=== PATIENT | male | born 1965 | race Caucasian/White ===

== ENCOUNTER → 2020-05-16 15:45 | Outpatient (BNVA) | payer OTHER, SELFPAY | PROVIDERS: Family Provider Nurse Practitioner; PCP Nurse Practitioner; Visit Provider Nurse Practitioner Family | DX: M54.9 Dorsalgia, unspecified (principal); M62.830 Muscle spasm of back; M54.5 Low back pain | CPT/HCPCS: 81000; 87086 ==

== ENCOUNTER 2020-09-18 16:56 | Emergency (ER) | payer OTHER, SELFPAY ==
[2020-09-18 17:08] VITALS: BP 147/92; PULSE 70; RESP 18; TEMP 36.8; O2SAT 96; BMI 27.1
--- NOTE | 2020-09-18 17:37 | XR_ITS ---
WS: [id number] Portable AP upright chest, 09/18/2020 Clinical Data: headache Comparison: PA and lateral chest, 11/14/2019. Findings: No nodules, masses or effusions are seen. The heart is normal. The pulmonary vascularity is not increased. No pneumonia or pneumothorax is seen. There is a bleb or bulla overlying the lateral aspect of the left diaphragm unchanged. XR/XR chest 1V portable [id number] Impression: Negative chest.
--- NOTE | 2020-09-18 17:37 | CTR_ITS ---
PROCEDURE INFORMATION: Exam: CT Head Without Contrast Exam date and time: 09/18/2020 5:39 PM Age: 55 years old Clinical indication: Pain; Dizziness and visual disturbance; Headache; Additional info: Persistent headache TECHNIQUE: Imaging protocol: Computed tomography of the head without contrast. Radiation optimization: All CT scans at this facility use at least one of these dose optimization techniques: automated exposure control; mA and/or kV adjustment per patient size (includes targeted exams where dose is matched to clinical indication); or iterative reconstruction. COMPARISON: No relevant prior studies available. RADIATION DOSE METRICS: Total DLP (mGy-cm): 842.58 FINDINGS: Brain: Normal. No hemorrhage. Unremarkable white matter. No mass effect. Cerebral ventricles: No ventriculomegaly. Bones/joints: Unremarkable. No acute fracture. Paranasal sinuses: Visualized sinuses are unremarkable. No fluid levels. Mastoid air cells: Visualized mastoid air cells are well aerated. Soft tissues: Unremarkable. CT/CT head wo con* [id number] IMPRESSION: No acute intracranial abnormality. Radiation Dose CTDIVOL = (mGy): DLP = 842.58 (mGy-cm)
--- NOTE | 2020-09-18 17:38 | PC.PHAR ---
PT STATES HE HAS BEEN OUT OF HIS LISINOPRIL FOR A WEEK-PT STATES HE HAS NO REFILLS LEFT
[2020-09-18 17:44] VITALS: BP 176/110; PULSE 76; RESP 16; O2SAT 96
--- NOTE | 2020-09-18 18:18 | ED_ITS ---
HPI - Headache General: Chief Complaint: Headache Stated Complaint: Headache,Dizziness, Blurred Vision Time Seen by Provider: 09/18/20 17:14 Source: patient Mode of arrival: ambulatory Limitations: no limitations History of Present Illness: HPI Narrative: 55-year-old male with no prior history of headaches presented to emergency department with headaches of 4 days duration. Headaches are frontal and he says it is behind his eyes. There is associated photophobia, nausea, blurred vision and dizziness. No fever, no neck stiffness, no neck pain. MD elicited complaint: headache Onset (ago): day(s) (4) Onset description: gradually Location: frontal Severity: moderate Quality & Timing: throbbing Exacerbating factors: none Relieving factors: nothing Context: occurred at rest Associated symptoms: Reports nausea and photophobia; Deny chest pain, confusion, cough, diaphoresis, eye pain, eye redness, fever(s), lightheadedness, loss of vision, malaise, neck stiffness, numbness, paresthesias, pre-syncope, rash, seizures, short of breath, sound sensitivity, syncope, vomiting or weakness Treatments prior to arrival: ibuprofen Review of Systems General: Reports: 10 or more systems reviewed and unremarkable except in HPI and below Const: Denies: fever(s), malaise or diaphoresis Eyes: Denies: change in vision or blurry vision ENMT: Denies: throat pain, enlarged tonsils, odynophagia, hoarseness, mouth pain or swelling of lips/tongue Card: Denies: chest pain, lightheadedness, syncope or pre-syncope Resp: Denies: dyspnea, productive cough or non-productive cough GI: Reports: nausea; Denies: vomiting : Denies: flank pain, dysuria, urinary frequency, urinary urgency or urinary hesitancy Musc: Denies: neck pain, back pain or extremity swelling Skin/Breast: Denies: rash Neuro: Denies: confusion Endo: Denies: polyuria, polydipsia or tired all the time [facility] ED PFSH: Social History Smoking and tobacco status: current every day smoker Alcohol intake: never Physical Exam Const: COMMON NORMALS: no acute distress, average body habitus, patient oriented x3, no limitations, healthy appearing, alert and well nourished HENMT: COMMON NORMALS: normocephalic, atraumatic and moist oral mucous membranes HEAD & SCALP: normocephalic and atraumatic Eye: COMMON NORMALS: Equal, round and reactive pupils present, EOMs intact bilaterally, conjunctivae normal and no scleral icterus CONJUNCTIVA: Yes conjunctivae normal PUPIL: Yes Equal, round and reactive pupils present DIRECT OPHTHALMOSCOPY: Yes photophobia Neck/C-Spine: COMMON NORMALS: full ROM, supple, no meningeal signs, no JVD and No carotid bruits Resp: COMMON NORMALS: normal respiratory effort, No retractions, No use of accessory muscles, clear to auscultation bilaterally and percussion normal AUSCULTATION: clear to auscultation bilaterally PERCUSSION: percussion normal Cardio: COMMON NORMALS: no JVD, regular rate, regular rhythm, S1 normal heart sound present, S2 normal heart sound present, No gallops present (Cardio), No clicks present (Cardio), No murmurs present (Cardio), No rub (Cardio) and Peripheral pulses 2+ throughout RATE: regular rate RHYTHM: regular rhythm HEART SOUNDS: S1 normal heart sound present and S2 normal heart sound present PERIPHERAL PULSES: Peripheral pulses 2+ throughout GI: COMMON NORMALS: Normal to inspection, nondistended, normoactive bowel sounds present, Soft to palpation, non-tender, No hepatosplenomegaly present, no masses and no bruits PALPATION: Yes Soft to palpation and Yes No hepatosplenomegaly present Neuro: COMMON NORMALS: patient oriented x3 SENSORIUM/ORIENTATION: Yes alert MENINGEAL SIGNS: Yes no meningeal signs Course Reevaluation(s): Reevaluation #1: Headache has resolved and he is ready to discharge home. Explained his lab and imaging findings with him. Unremarkable. Most likely had a migraine headache. Also refilled his antihypertensives. Blood pressure was much improved by the time his headache resolved. Time: 21:02 Vital Signs: Vital signs: Vital Signs Temperature 98.2 F 09/18/20 17:08 Pulse Rate 61 09/18/20 21:14 Respiratory Rate 16 09/18/20 21:14 Blood Pressure 139/91 09/18/20 21:14 Pulse Oximetry 95 09/18/20 21:14 MDM - Headache MDM Narrative: Medical decision making narrative: 55-year-old male with clinical features of a migraine headache. Head CT was negative, examination and lab findings were unremarkable. He is discharged home with no new orders. Headache resolved with migraine medications. Blood pressure also normalized. I refilled his antihypertensive as he says his primary care did not today and only sent him here for evaluation. Medical Records: Attestation: I reviewed the patient's medical records. Lab Data: Attestation: I reviewed the patient's lab results. Labs: Lab Results 09/18/20 09/18/20 09/18/20 Range/Units 18:17 18:17 18:17 WBC 7.8 (4.0-10.0) 10^3/ uL RBC 4.62 (4.1-5.3) 10^6/u L Hgb 14.5 (11.7-16.6) g/dL Hct 42.8 (42.0-52.0) % MCV 92.6 (80-94) fL MCH 31.4 (28.0-34.0) pg MCHC 33.9 (30.0-36.0) g/dL RDW 13.6 (12.1-15.1) % Plt Count 334 (130-400) 10^3/c mm MPV 10.1 (7.4-10.4) fL Neut % (Auto) 61.2 % Lymph % (Auto) 26.0 % [place] % (Auto) 8.7 % Eos % (Auto) 2.9 % Baso % (Auto) 0.8 % Neut # (Auto) 4.78 (1.8-7.7) 10^3/u L Lymph # (Auto) 2.0 (0.8-4.8) 10^3/u L [place] # (Auto) 0.7 (0.2-0.9) 10^3/u L Eos # (Auto) 0.2 (0.0-0.8) 10^3/u L Baso # (Auto) 0.1 (0.0-0.1) 10^3/u L Nucleated RBC % (a uto) 0 % Nucleated RBCs # 0.0 /100WBC PT 12.30 (12.1-14.9) SECO NDS INR 0.89 (0.8-1.2) Sodium 136 (136-145) mmol/L Potassium 4.0 (3.5-5.1) mmol/L Chloride 101 (98-107) mmol/L Carbon Dioxide 24 (22-29) mmol/L Anion Gap 15.0 (5-19) BUN 16 (6-20) mg/dL Creatinine 0.8 (0.7-1.2) mg/dL GFR Calculation 101.1 (90-130) mL/min Glucose 98 (65-115) mg/dL Calculated Osmolal ity 283 L (285-295) mOsm/k g Calcium 9.3 (8.5-10.5) mg/dL Total Bilirubin 0.2 (0.15-1.2) mg/dL AST 15 (0-40) U/L ALT 20 (0-41) U/L Alkaline Phosphata se 63 (40-130) IU/L Total Protein 6.9 (6.6-8.7) g/dL Albumin 4.3 (3.5-5.2) g/dL Globulin 2.6 (1.3-4.6) g/dL Imaging Data^: CT Head: Attestation: I personally reviewed and interpreted this imaging study as follows: Radiologist's impression: [address] [address] [address] Scan Report Signed Patient: Varun Roman #: [id number] : 1965Acct#:[id number] Age/Sex: 55 / MADM Date: 09/18/20 Loc: [facility]/Bed: Attending Dr: Ordering Provider/Ordering MD: Bunny Li MD, [facility] [place] Date of Service: 09/18/20 Procedure(s): CT head wo con* [id number] Accession Number(s): [id number] Report Number: [id number] PROCEDURE INFORMATION: Exam: CT Head Without Contrast Exam date and time: 09/18/2020 5:39 PM Age: 55 years old Clinical indication: Pain; Dizziness and visual disturbance; Headache; Additional info: Persistent headache TECHNIQUE: Imaging protocol: Computed tomography of the head without contrast. Radiation optimization: All CT scans at this facility use at least one of these dose optimization techniques: automated exposure control; mA and/or kV adjustment per patient size (includes targeted exams where dose is matched to clinical indication); or iterative reconstruction. COMPARISON: No relevant prior studies available. RADIATION DOSE METRICS: Total DLP (mGy-cm): 842.58 FINDINGS: Brain: Normal. No hemorrhage. Unremarkable white matter. No mass effect. Cerebral ventricles: No ventriculomegaly. Bones/joints: Unremarkable. No acute fracture. Paranasal sinuses: Visualized sinuses are unremarkable. No fluid levels. Mastoid air cells: Visualized mastoid air cells are well aerated. Soft tissues: Unremarkable. CT/CT head wo con* [id number] IMPRESSION: No acute intracranial abnormality. Radiation Dose CTDIVOL = (mGy): DLP = 842.58 (mGy-cm) Dictated By:Rosalio Suarez Signed By:Ciaran Suarezigned Date/Time:09/18/201814 DD/ 12 CXR: Attestation: I personally reviewed and interpreted this imaging study as follows: My impression: No acute findings Discharge Plan Discharge Patient Disposition: Home Clinical Impression: Migraine Qualifiers: Migraine type: without aura Status migrainosus presence: without status migrainosus Intractability: not intractable Qualified Code(s): G43.009 - Migraine without aura, not intractable, without status migrainosus Hypertension Qualifiers: Hypertension type: essential hypertension Qualified Code(s): I10 - Essential (primary) hypertension Condition: Stable Prescriptions: New lisinopril 10 mg tablet 10 mg PO DAILY Qty: 30 RF: 0 Continued meclizine 25 mg tablet 25 mg PO TID PRN (Reason: Dizziness) RF: 0 Aleve PM 220-25 mg Tablet 2 tab PO BEDTIME RF: 0 Discontinued lisinopril 10 mg tablet 10 mg PO DAILY RF: 0 Discharge Orders: Discharge ED (Routine); Ordered 09/18/20 Ordered By: Bunny Li Discharge Diet: Usual diet Discharge Activity: Increase activity as tolerated Patient Instructions: Migraine Headache (ED), Hypertension (ED) Activity Restrictions/Additional Instructions: Return for any new or worsening symptoms. Follow-up with your primary care provider within 3 days. Take your antihypertensives as prescribed. Coding Level of Care Code ED Test Man for Chg Fwd Exam Detailed
[2020-09-18 18:45] LABS: Basophils # 0.1 10^3/uL (0.0-0.1); Basophils % 0.8 %; Eosinophils # 0.2 10^3/uL (0.0-0.8); Eosinophils % 2.9 %; Hematocrit 42.8 % (42.0-52.0); Hemoglobin 14.5 g/dL (11.7-16.6); Mean Corpuscular HGB Conc 33.9 g/dL (30.0-36.0); Mean Corpuscular Hemoglobin 31.4 pg (28.0-34.0); Mean Corpuscular Volume 92.6 fL (80-94); Mean Platelet Volume 10.1 fL (7.4-10.4); Monocytes # 0.7 10^3/uL (0.2-0.9); Monocytes % 8.7 %; Neutrophils # 4.78 10^3/uL (1.8-7.7); Neutrophils % 61.2 %; Nucleated Red Blood Cells % 0 %; Platelet Count 334 10^3/cmm (130-400); Red Blood Count 4.62 10^6/uL (4.1-5.3); Red Cell Distribution Width 13.6 % (12.1-15.1); White Blood Count 7.8 10^3/uL (4.0-10.0)
[2020-09-18] MEDS: ketorolac 30 mg/mL INJ IVP (18:56)
[2020-09-18] MEDS: diphenhydrAMINE 50 mg/mL SDV 1mL IVP (18:56)
[2020-09-18 19:07] LABS: INR 0.89 (0.8-1.2)
[2020-09-18 19:14] LABS: Alanine Aminotransferase 20 U/L (0-41); Albumin Level 4.3 g/dL (3.5-5.2); Alkaline Phosphatase 63 IU/L (40-130); Aspartate Amino Transferase 15 U/L (0-40); Blood Urea Nitrogen 16 mg/dL (6-20); Calcium 9.3 mg/dL (8.5-10.5); Carbon Dioxide 24 mmol/L (22-29); Chloride 101 mmol/L (98-107); Creatinine Clr Calc Pharmacy 125.1338; Globulin 2.6 g/dL (1.3-4.6); Glomerular Filtration Rate 101.1 mL/min (90-130); Glucose 98 mg/dL (65-115); Osmolality Calculated 283 mOsm/kg (285-295); Sodium 136 mmol/L (136-145); Total Bilirubin 0.2 mg/dL (0.15-1.2); Total Protein 6.9 g/dL (6.6-8.7)
[2020-09-18] MEDS: valproic acid inj 1,000 MG in sodium chloride 0.9% 50 ML 55 MG IV (20:24)
[2020-09-18] MEDS: dexamethasone 10 mg/mL INJ IVP (20:24)
[2020-09-18 21:14] VITALS: BP 139/91; PULSE 61; RESP 16; O2SAT 95
== END 2020-09-18 21:21 | disposition home or self-care (01) ==
PROVIDERS: Emergency Provider Family Medicine
DX: G43.009 Migraine without aura, not intractable, without status migrainosus (principal); I10 Essential (primary) hypertension; F17.210 Nicotine dependence, cigarettes, uncomplicated
CPT/HCPCS: 12345; 70450; 71045; 80053; 85025; 85610; 96365; 96375; 99283; J1100; J1200; J1885

== ENCOUNTER 2020-12-02 14:23 | Emergency (ER) | payer OTHER, SELFPAY ==
[2020-12-02 14:45] VITALS: BP 153/87; PULSE 74; RESP 18; TEMP 36.6; O2SAT 96; BMI 27.2
--- NOTE | 2020-12-02 15:22 | XRR_ITS ---
PROCEDURE INFORMATION: Exam: XR Chest Exam date and time: 12/02/2020 3:31 PM Age: 55 years old Clinical indication: Shortness of breath; Additional info: SOB TECHNIQUE: Imaging protocol: XR of the chest. Views: 1 view. COMPARISON: CR XR chest 1V portable [id number] 09/18/2020 5:41 PM FINDINGS: Lungs: Unremarkable. No consolidation. Pleural spaces: Unremarkable. No pleural effusion. No pneumothorax. Heart/Mediastinum: Unremarkable. No cardiomegaly. Bones/joints: Unremarkable. XR/XR chest 1V portable [id number] IMPRESSION: No acute findings.
--- NOTE | 2020-12-02 15:24 | ECG_ITS ---
[facility] Test Date: 2020-12-02 Pat Name: Varun Roman Department: Room: Gender: Male Sourcing Manager: : 1965 Requested By: Clive Hummel Order Number: [id number] Mehran MD: Loida Phelan M.D. Measurements Intervals [place] Rate: 64 P: 56 WA: 160 QRS: 12 QRSD: 100 T: 57 QT: 388 QTc: 401 Interpretive Statements SINUS RHYTHM No previous ECG available for comparison Electronically Signed On 12-03-2020 12:11:47 CDT by Loida Phelan M.D. [email or web address]
[2020-12-02 15:48] LABS: ABG PCO2 41.2 mmHg (35-45); ABG PH Result 7.41 (7.35-7.45); Arterial Blood Gas Hematocrit 45.9 % (42-52); Base Excess ABG 1.4 mmol/L (-2.0-2.0); Blood Gas Allen Test Pos; Blood Gas Sample Site Radial, right; Blood Gas Sample Type Arterial; Carboxyhemoglobin 5.9 %THgb (0.4-20.1); HCO3 ABG 26.2 mmol/L (22-26); HGB O2 Sat 91.4 % (95-100); Methemoglobin 0.5 % (0.4-1.5); Oxygen Device ROOM AIR; PO2 ABG 85.7 mmHg (80.0-100.0)
--- NOTE | 2020-12-02 15:51 | W.ED.GENADLT ---
HPI - General Adult General: Chief complaint: Shortness of Breath/Dyspnea Stated complaint: dizzy Time Seen by Provider: 12/02/20 15:16 History of Present Illness: HPI narrative: 55 yo male presents with generalized malaise, dizziness, nausea, sob, cp. sob /cp have resolved. pts significant other has similar symptoms. symptoms started yesterday after they cooked indoors with a propane fryer. pt went to urgent care, who sent him to ER for further evaluation Associated symptoms: Reports chest pain (resoved ), dyspnea (resoved), headache(s), malaise and nausea; Deny rash or vomiting Review of Systems Const: Reports: malaise; Denies: fever(s) or chills Eyes: Denies: change in vision ENMT: Denies: throat pain Card: Reports: chest pain (resoved ) and other (see hpi ) Resp: Reports: dyspnea (resoved) and other (see hpi ) GI: Reports: nausea; Denies: abdominal pain or vomiting : Denies: difficulty urinating or dysuria Musc: Denies: neck pain Skin/Breast: Denies: rash Neuro: Reports: headache(s) and dizziness PFS ED PFSH: Social History Smoking and tobacco status: current every day smoker Alcohol intake: never Course Vital Signs: Vital signs: Vital Signs Temperature 97.8 F 12/02/20 14:45 Pulse Rate 68 12/02/20 15:55 Respiratory Rate 16 12/02/20 15:55 Blood Pressure 145/85 12/02/20 15:55 Pulse Oximetry 96 12/02/20 15:55 MDM - General Adult MDM Narrative: Medical decision making narrative: Patient with no significant findings on EKG, x-ray or labs. Patient with normal carboxyhemoglobin. Lab Data: Attestation: I reviewed the patient's lab results. Labs: Lab Results 12/02/20 12/02/20 12/02/20 Range/Units 15:35 15:48 15:48 WBC Cancelled Corrected WBC Cancelled RBC Cancelled Hgb Cancelled Hct Cancelled MCV Cancelled MCH Cancelled MCHC Cancelled RDW Cancelled Plt Count Cancelled MPV Cancelled Gran % Cancelled Neut % (Auto) Cancelled Lymph % (Auto) Cancelled [place] % (Auto) Cancelled Eos % (Auto) Cancelled Baso % (Auto) Cancelled Neut # (Auto) Cancelled Lymph # (Auto) Cancelled [place] # (Auto) Cancelled Eos # (Auto) Cancelled Baso # (Auto) Cancelled Absolute Gran (aut o) Cancelled Nucleated RBC % (a uto) Cancelled Nucleated RBCs # Cancelled Specimen Type Arterial Sample Site Radial, right ABG pH 7.41 (7.35-7.45) ABG pCO2 41.2 (35-45) mmHg ABG pO2 85.7 (80.0-100.0) mmH g ABG HCO3 26.2 H (22-26) mmol/L ABG Base Excess 1.4 (-2.0-2.0) mmol/ L Roque Test Pos Hematocrit 45.9 (42-52) % Hgb O2 Saturation 91.4 L (95-100) % Carboxyhemoglobin 5.9 (0.4-20.1) %THgb Methemoglobin 0.5 (0.4-1.5) % Total Hemoglobin 15.0 (14-18) g/dL O2 Delivery Device Room air FiO2 21.0 % Sheriff ID Eds Sodium 139 (136-145) mmol/L Potassium 4.1 (3.5-5.1) mmol/L Chloride 102 (98-107) mmol/L Carbon Dioxide 24 (22-29) mmol/L Anion Gap 17.1 (5-19) BUN 16 (6-20) mg/dL Creatinine 0.9 (0.7-1.2) mg/dL GFR Calculation 88.3 L (90-130) mL/min Glucose 97 (65-115) mg/dL Calculated Osmolal ity 289 (285-295) mOsm/k g Calcium 8.9 (8.5-10.5) mg/dL Troponin T Gen 5 n g/L (0-15) ng/L NT-Pro-B Natriuret Pep 36 (0-125) pg/mL 12/02/20 12/02/20 Range/Units 15:48 17:15 WBC 6.8 Corrected WBC RBC 4.82 Hgb 15.0 Hct 46.2 MCV 95.9 H MCH 31.1 MCHC 32.5 RDW 13.3 Plt Count 336 MPV 9.5 Gran % Neut % (Auto) 48.5 Lymph % (Auto) 34.9 [place] % (Auto) 10.7 Eos % (Auto) 4.3 Baso % (Auto) 1.0 Neut # (Auto) 3.31 Lymph # (Auto) 2.4 [place] # (Auto) 0.7 Eos # (Auto) 0.3 Baso # (Auto) 0.1 Absolute Gran (aut o) Nucleated RBC % (a uto) 0 Nucleated RBCs # 0.0 Specimen Type Sample Site ABG pH (7.35-7.45) ABG pCO2 (35-45) mmHg ABG pO2 (80.0-100.0) mmH g ABG HCO3 (22-26) mmol/L ABG Base Excess (-2.0-2.0) mmol/ L Roque Test Hematocrit (42-52) % Hgb O2 Saturation (95-100) % Carboxyhemoglobin (0.4-20.1) %THgb Methemoglobin (0.4-1.5) % Total Hemoglobin (14-18) g/dL O2 Delivery Device FiO2 % Sheriff ID Sodium (136-145) mmol/L Potassium (3.5-5.1) mmol/L Chloride (98-107) mmol/L Carbon Dioxide (22-29) mmol/L Anion Gap (5-19) BUN (6-20) mg/dL Creatinine (0.7-1.2) mg/dL GFR Calculation (90-130) mL/min Glucose (65-115) mg/dL Calculated Osmolal ity (285-295) mOsm/k g Calcium (8.5-10.5) mg/dL Troponin T Gen 5 n g/L 6 (0-15) ng/L NT-Pro-B Natriuret Pep (0-125) pg/mL Imaging Data^: CXR: Attestation: I personally reviewed and interpreted this imaging study as follows: My impression: no acute findings Radiologist's impression: XR/XR chest 1V portable [id number] IMPRESSION: No acute findings. EKG Data^: EKG 1: Attestation: I personally reviewed and interpreted this EKG as follows: EKG interpretation date: 12/02/20 EKG interpretation time: 15:52 Interpretation: Heart rate 64, sinus rhythm, LA interval 160 ms. No acute findings. Computer generated interpretation: Chest X-Ray 12/02/20 15:22 IMPRESSION: No acute findings. Discharge Plan Discharge Clinical Impression: Toxic effect of propane Qualifiers: Encounter type: initial encounter Injury intent: accidental or unintentional Qualified Code(s): T59.891A - Toxic effect of other specified gases, fumes and vapors, accidental (unintentional), initial encounter Condition: Stable Prescriptions: No Action Aleve PM 220-25 mg Tablet 2 tab PO BEDTIME RF: 0 lisinopril 10 mg tablet 10 mg PO QAM RF: 0 Discharge Diet: Advance as tolerated Discharge Activity: Resume usual activity Patient Instructions: Carbon Monoxide Exposure (ED) Activity Restrictions/Additional Instructions: Please only use propane burners outside in a well ventilated area Coding Level of Care Code ED Research And Development Engineer for Wan Velazquez
[2020-12-02 15:55] VITALS: BP 145/85; PULSE 68; RESP 16; O2SAT 96
[2020-12-02 16:32] LABS: Troponin T (5th) Once 6 ng/L (0-15)
[2020-12-02 16:39] LABS: Anion Gap 17.1 (5-19); Blood Urea Nitrogen 16 mg/dL (6-20); Calcium 8.9 mg/dL (8.5-10.5); Carbon Dioxide 24 mmol/L (22-29); Chloride 102 mmol/L (98-107); Glomerular Filtration Rate 88.3 mL/min (90-130); Glucose 97 mg/dL (65-115); NT Pro B Type Natriuretic Pept 36 pg/mL (0-125); Osmolality Calculated 289 mOsm/kg (285-295); Potassium 4.1 mmol/L (3.5-5.1); Sodium 139 mmol/L (136-145)
[2020-12-02 17:33] LABS: Basophils # 0.1 10^3/uL (0.0-0.1); Eosinophils # 0.3 10^3/uL (0.0-0.8); Eosinophils % 4.3 %; Hematocrit 46.2 % (42.0-52.0); Lymphocytes # 2.4 10^3/uL (0.8-4.8); Lymphocytes % 34.9 %; Mean Corpuscular HGB Conc 32.5 g/dL (30.0-36.0); Mean Corpuscular Hemoglobin 31.1 pg (28.0-34.0); Mean Corpuscular Volume 95.9 fL (80-94); Mean Platelet Volume 9.5 fL (7.4-10.4); Monocytes # 0.7 10^3/uL (0.2-0.9); Monocytes % 10.7 %; Neutrophils # 3.31 10^3/uL (1.8-7.7); Neutrophils % 48.5 %; Nucleated Red Blood Cells % 0 %; Platelet Count 336 10^3/cmm (130-400); Red Blood Count 4.82 10^6/uL (4.1-5.3); Red Cell Distribution Width 13.3 % (12.1-15.1); White Blood Count 6.8 10^3/uL (4.0-10.0)
== END 2020-12-02 18:22 ==
PROVIDERS: Emergency Provider Student in an Organized Health Care Education/Training Program
DX: T59.891A Toxic effect of other specified gases, fumes and vapors, accidental (unintentional), initial encounter (principal); F17.210 Nicotine dependence, cigarettes, uncomplicated
CPT/HCPCS: 36600; 71045; 80048; 82805; 83880; 84484; 85025; 93005; 99283

== ENCOUNTER 2021-09-04 12:39 | Emergency (ER) | payer OTHER, SELFPAY ==
[2021-09-04 12:59] VITALS: BP 142/90; PULSE 69; RESP 12; TEMP 36.5; O2SAT 96; BMI 29.8
--- NOTE | 2021-09-04 17:50 | W.ED.ABDPA2 ---
HPI - Abdominal Pain General: Chief Complaint: Abdominal Pain Stated Complaint: Pains in under stomach for 3 months Time Seen by Provider: 09/04/21 17:48 History of Present Illness: HPI narrative: 56-year-old male patient comes in today with complaints of abdominal pain for the last 3 months. Patient reports that the pain is exacerbated with eating. Patient also reports some episodes of diarrhea. Patient denies any fever. Patient does have his gallbladder. Patient does have a history of diverticulosis. Review of Systems GI: Reports: abdominal pain PFSH ED PFSH: Social History Smoking and tobacco status: current every day smoker (chew) Alcohol intake: never Physical Exam Const: COMMON NORMALS: healthy appearing HENMT: COMMON NORMALS: normocephalic HEAD & SCALP: normocephalic Neck/C-Spine: COMMON NORMALS: full ROM Resp: COMMON NORMALS: normal respiratory effort and clear to auscultation bilaterally AUSCULTATION: clear to auscultation bilaterally Cardio: COMMON NORMALS: regular rate and regular rhythm RATE: regular rate RHYTHM: regular rhythm GI: AUSCULTATION: Yes normoactive bowel sounds PALPATION: Yes Tenderness to palpation present (GI) Details: LLQ Extremity: COMMON NORMALS: normal to inspection Skin: COMMON NORMALS: no rashes or lesions noted GENERAL SKIN EXAM: no rashes or lesions noted Course Vital Signs: Vital signs: Vital Signs Temperature 97.7 F 09/04/21 12:59 Pulse Rate 69 09/04/21 12:59 Respiratory Rate 12 09/04/21 12:59 Blood Pressure 142/90 09/04/21 12:59 Pulse Oximetry 96 09/04/21 12:59 MDM - Abdominal Pain MDM Narrative: Medical decision making narrative: Patient comes in today with complaints of abdominal discomfort and diarrhea for the last 3 months. Patient has been talking with his primary care provider and they had ordered ultrasound but ended up being canceled due to COVID-19. Patient comes in today due to persistent pains and diarrhea. On exam abdomen is soft with some tenderness in the left lower quadrant. Bowel sounds are present. Vital signs were normal except for some mild elevation in blood pressure at 142/90. Differential diagnosis includes but not limited to diverticulitis, functional diarrhea, gallbladder disease. Laboratory values were unremarkable. Urinalysis was normal. CT of the abdomen and pelvis indicated no significant abnormalities. Reviewed exam with patient recommended patient be seen by surgery for a colonoscopy for further evaluation of diarrhea and abdominal pain. Case management was requested for assistance with follow-up appointment. Patient was agreeable to plan. Patient will monitor for fever or blood in vomit or stool and return as needed. Lab Data: Labs: Lab Results 09/04/21 09/04/21 09/04/21 18:30 19:14 19:14 WBC 5.4 10^3/uL 10^3/ uL (4.0-10.0) RBC 5.08 10^6/uL 10^6 /uL (4.1-5.3) Hgb 15.3 g/dL g/dL (11.7-16.6) Hct 45.8 % % (42.0-52.0) MCV 90.2 fl fl (80-94) MCH 30.1 pg pg (28.0-34.0) MCHC 33.4 g/dL g/dL (30.0-36.0) RDW 13.0 % % (12.1-15.1) Plt Count 317 10^3/cmm 10^3 /cmm (130-400) MPV 9.5 fL fL (7.4-10.4) Neut % (Auto) 47.0 % % Lymph % (Auto) 37.7 % % [place] % (Auto) 10.8 % % Eos % (Auto) 3.2 % % Baso % (Auto) 0.9 % % Neut # (Auto) 2.53 10^3/uL 10^3 /uL (1.8-7.7) Lymph # (Auto) 2.0 10^3/uL 10^3/ uL (0.8-4.8) [place] # (Auto) 0.6 10^3/uL 10^3/ uL (0.2-0.9) Eos # (Auto) 0.2 10^3/uL 10^3/ uL (0.0-0.8) Baso # (Auto) 0.1 10^3/uL 10^3/ uL (0.0-0.1) Nucleated RBC % (a uto) 0 % % Nucleated RBCs # 0.0 /100WBC /100W BC Sodium 137 mmol/L mmol/L (136-145) Potassium 3.9 mmol/L mmol/L (3.5-5.1) Chloride 101 mmol/L mmol/L (98-107) Carbon Dioxide 20 mmol/L L mmol/ L (22-29) Anion Gap 19.9 H (5-19) BUN 13 mg/dL mg/dL (6-20) Creatinine 0.7 mg/dL mg/dL (0.7-1.2) GFR Calculation 117.5 mL/min mL/m in (90-130) Glucose 92 mg/dL mg/dL (65-115) Calculated Osmolal ity 284 mOsm/kg L mOs m/kg (285-295) Calcium 9.2 mg/dL mg/dL (8.5-10.5) Total Bilirubin 0.3 mg/dL mg/dL (0.15-1.2) AST 17 U/L U/L (0-40) ALT 31 U/L U/L (0-41) Alkaline Phosphata se 71 IU/L IU/L (40-130) Total Protein 7.5 g/dL g/dL (6.6-8.7) Albumin 4.7 g/dL g/dL (3.5-5.2) Globulin 2.8 g/dL g/dL (1.3-4.6) Lipase 24 U/L U/L (13-60) Urine Color Yellow (Yellow) Urine Appearance Clear (CLEAR) Urine pH 5 (5-7) Ur Specific Gravit y 1.015 (1.005-1.030) Urine Protein Neg (Negative) Urine Glucose (UA) Norm (Normal) Urine Ketones Negative (Negative) Urine Blood Neg (Negative) Urine Nitrate Negative (Negative) Urine Bilirubin Neg (Negative) Urine Urobilinogen Norm mg/dL mg/dL (Negative) Ur Leukocyte Ellie ase Negative (Negative) Discharge Plan Discharge Patient Disposition: Home Clinical Impression: Abdominal pain Qualifiers: Abdominal location: left lower quadrant Qualified Code(s): R10.32 - Left lower quadrant pain Diarrhea Qualifiers: Diarrhea type: unspecified type Qualified Code(s): R19.7 - Diarrhea, unspecified Condition: Stable Prescriptions: No Action pantoprazole [Protonix] 20 mg tablet,delayed release (DR/EC) 20 mg PO DAILY 30 Days Qty: 30 RF: 0 Aleve PM 220-25 mg Tablet 2 tab PO BEDTIME RF: 0 lisinopril 10 mg tablet 10 mg PO QAM RF: 0 Discharge Orders: Discharge ED (Routine); Ordered 09/04/21 Ordered By: Geo Troy Referrals: Jon Suresh DO [Primary Care Provider] - Discharge Diet: Usual diet Discharge Activity: Increase activity as tolerated Patient Instructions: Abdominal Pain (ED) Activity Restrictions/Additional Instructions: Home and rest. Drink plenty of fluids. You may need to drink some electrolyte solution daily especially while having diarrhea. Follow-up with primary care for further instruction. Return to the ER for new concerns or worsening symptoms. Case management will contact you regarding appointment with surgeon for evaluation and colonoscopy. Coding Level of Care Code ED Calender Roll Operator for Chg Fwd Exam Comprehensive
--- NOTE | 2021-09-04 17:51 | CTR_ITS ---
PROCEDURE INFORMATION: Exam: CT Abdomen And Pelvis With Contrast Exam date and time: 09/04/2021 5:51 PM Age: 56 years old Clinical indication: Bloating and other: Diarrhea; Abdominal pain; Additional info: Abd pain TECHNIQUE: Imaging protocol: Computed tomography of the abdomen and pelvis with contrast. Radiation optimization: All CT scans at this facility use at least one of these dose optimization techniques: automated exposure control; mA and/or kV adjustment per patient size (includes targeted exams where dose is matched to clinical indication); or iterative reconstruction. Contrast material: OMNI 300; Contrast volume: 95 ml; Contrast route: INTRAVENOUS (IV); COMPARISON: CR XR KUB [id number] 09/05/2018 5:03 PM RADIATION DOSE METRICS: Total DLP (mGy-cm): 1833.2 FINDINGS: Lungs: There is a 6 cm sized thin-walled cavity in the anterior left lower lobe probably a bleb or small bulla. There are other smaller pulmonary blebs at the left lung base. Liver: There is a diffuse decrease in hepatic parenchymal density, consistent with mild fatty infiltration. There is no focal abnormality within the liver. Gallbladder and bile ducts: The gallbladder is normal. Pancreas: The pancreas is normal. Spleen: The spleen is normal. Adrenal glands: The adrenal glands are normal. Kidneys and ureters: There is small nonobstructing stone upper pole calyx of left kidney. The right kidney is normal. There is no evidence of hydronephrosis. There is no stone along the course of either ureter. Stomach and bowel: There is no evidence of colitis/diverticulitis. Appendix: There has been an appendectomy. Intraperitoneal space: Unremarkable. No free air. No significant fluid collection. Vasculature: The aorta demonstrates mild atherosclerotic calcification. There is no evidence of an abdominal aortic aneurysm. Lymph nodes: There is no evidence of lymphadenopathy. Urinary bladder: Unremarkable as visualized. Reproductive: Unremarkable as visualized. Bones/joints: Unremarkable. No acute fracture. Soft tissues: Unremarkable. CT/CT abdomen pelvis w con* [id number] IMPRESSION: 1. Mild fatty liver 2. Left nephrolithiasis 3. No ureteral calculus is demonstrated. 4. No acute finding.
[2021-09-04 18:50] LABS: Add Urine Microscopic? NO; Charge for UA Resulting for Rev
[2021-09-04 18:53] LABS: Bilirubin Urine Neg (Negative); Blood Urine Neg (Negative); Glucose Urine UA Norm (Normal); Ketones Urine Negative (Negative); Leukocyte Esterase Urine Negative (Negative); Nitrate Urine Negative (Negative); Protein Urine Neg (Negative); Specific Gravity, Urine 1.015 (1.005-1.030); Urine Appearance Clear (CLEAR); Urine Color Yellow (Yellow); Urobilinogen Urine Norm (Negative); pH Urine 5 (5-7)
[2021-09-04 19:27] LABS: Basophils # 0.1 10^3/uL (0.0-0.1); Basophils % 0.9 %; Eosinophils # 0.2 10^3/uL (0.0-0.8); Eosinophils % 3.2 %; Hematocrit 45.8 % (42.0-52.0); Hemoglobin 15.3 g/dL (11.7-16.6); Lymphocytes % 37.7 %; Mean Corpuscular HGB Conc 33.4 g/dL (30.0-36.0); Mean Corpuscular Hemoglobin 30.1 pg (28.0-34.0); Mean Corpuscular Volume 90.2 fl (80-94); Mean Platelet Volume 9.5 fL (7.4-10.4); Monocytes # 0.6 10^3/uL (0.2-0.9); Monocytes % 10.8 %; Neutrophils # 2.53 10^3/uL (1.8-7.7); Nucleated Red Blood Cells % 0 %; Platelet Count 317 10^3/cmm (130-400); Red Blood Count 5.08 10^6/uL (4.1-5.3); White Blood Count 5.4 10^3/uL (4.0-10.0)
[2021-09-04] MEDS: iohexol 300 mg/mL 100 mL Btl IV (19:42)
[2021-09-04 19:49] LABS: Alanine Aminotransferase 31 U/L (0-41); Albumin Level 4.7 g/dL (3.5-5.2); Alkaline Phosphatase 71 IU/L (40-130); Anion Gap 19.9 (5-19); Aspartate Amino Transferase 17 U/L (0-40); Blood Urea Nitrogen 13 mg/dL (6-20); Calcium 9.2 mg/dL (8.5-10.5); Carbon Dioxide 20 mmol/L (22-29); Chloride 101 mmol/L (98-107); Globulin 2.8 g/dL (1.3-4.6); Glomerular Filtration Rate 117.5 mL/min (90-130); Glucose 92 mg/dL (65-115); Lipase 24 U/L (13-60); Osmolality Calculated 284 mOsm/kg (285-295); Potassium 3.9 mmol/L (3.5-5.1); Sodium 137 mmol/L (136-145); Total Bilirubin 0.3 mg/dL (0.15-1.2); Total Protein 7.5 g/dL (6.6-8.7)
--- NOTE | 2021-09-05 09:32 | DCPLANNER ---
Addendum entered by Calli Wiley 09/23/21 08:16: Patient had a follow up appointment scheduled with general surgery - patient did not attend appointment. Addendum entered by Calli Wiley 09/12/21 06:58: manager mission sent an email to the general surgery clinic, checking on referral status. Original Note: manager mission had message to schedule a follow up appointment for patient with general surgery. manager mission emailed patients information to Ingrid Dubon at [facility] General Surgery / ENT clinic. Patients information will be printed and reviewed. Clinic will call patient with appointment information.
== END 2021-09-04 21:10 | disposition home or self-care (01) ==
PROVIDERS: Physician Assistant; Emergency Provider Nurse Practitioner Family; PCP Family Medicine
DX: R10.32 Left lower quadrant pain (principal); R19.7 Diarrhea, unspecified; F17.220 Nicotine dependence, chewing tobacco, uncomplicated
CPT/HCPCS: 74177; 80053; 81003; 83690; 85025; 99283; Q9967

== ENCOUNTER 2022-01-08 20:08 | Emergency (ER) | payer OTHER, SELFPAY ==
[2022-01-08 20:11] VITALS: BP 134/87; PULSE 84; RESP 14; TEMP 36.7; O2SAT 98
[2022-01-08 20:27] VITALS: BP 139/88; PULSE 83; RESP 18; O2SAT 97
[2022-01-08 20:30] VITALS: BP 139/88; PULSE 82; O2SAT 97
--- NOTE | 2022-01-08 20:31 | CTR_ITS ---
PROCEDURE INFORMATION: Exam: CT Abdomen And Pelvis Without Contrast Exam date and time: 01/08/2022 9:03 PM Age: 56 years old Clinical indication: Abdominal pain; Localized; Left lower quadrant (llq); Patient HX: C/O llq pain. ; Additional info: Llq abd pain TECHNIQUE: Imaging protocol: Computed tomography of the abdomen and pelvis without contrast. Radiation optimization: All CT scans at this facility use at least one of these dose optimization techniques: automated exposure control; mA and/or kV adjustment per patient size (includes targeted exams where dose is matched to clinical indication); or iterative reconstruction. COMPARISON: CT abdomen pelvis w con* [id number] 09/04/2021 7:43 PM RADIATION DOSE METRICS: Total DLP (mGy-cm): 1857.51 FINDINGS: Liver: Normal. No mass. Gallbladder and bile ducts: Normal. No calcified stones. No ductal dilation. Pancreas: Normal. No ductal dilation. Spleen: Normal. No splenomegaly. Adrenal glands: Normal. No mass. Kidneys and ureters: Normal. No hydronephrosis. Stomach and bowel: Edema seen about the mid descending colon with wall thickening in the area of several diverticula consistent with diverticulitis. Appendix: No evidence of appendicitis. Intraperitoneal space: Unremarkable. No free air. No significant fluid collection. Vasculature: Unremarkable. No abdominal aortic aneurysm. Lymph nodes: Unremarkable. No enlarged lymph nodes. Urinary bladder: Unremarkable as visualized. Reproductive: Unremarkable as visualized. Bones/joints: Unremarkable. No acute fracture. Soft tissues: Unremarkable. Other findings: Bilateral punctate non-obstructing calyceal stones. CT/CT abdomen pelvis wo con [id number] IMPRESSION: 1. Mid descending colon diverticulitis, negative for abscess. 2. Bilateral punctate non-obstructing calyceal stones.
--- NOTE | 2022-01-08 20:38 | W.ED.ABDPA2 ---
HPI - Abdominal Pain General: Chief Complaint: Abdominal Pain Stated Complaint: ABD Pain Time Seen by Provider: 01/08/22 20:23 Source: patient Mode of arrival: ambulatory Limitations: no limitations History of Present Illness: 56-year-old male states has been having left lower quadrant abdominal pain over the last 2 to 3 days. States that sharp pain denies any radiation states pain is an 8 out of 10 he denies any vomiting or diarrhea denies any fevers denies any worsening improving factors. Associated Symptoms: Denies chills, dysuria and fever(s) Review of Systems Const: Denies: fever(s), chills, body aches or change in appetite Eyes: Denies: blurry vision or eye discomfort ENMT: Denies: throat pain or dental pain Card: Denies: chest pain Resp: Denies: dyspnea GI: Reports: abdominal pain : Denies: dysuria Musc: Denies: neck pain or back pain Skin/Breast: Denies: rash Neuro: Denies: headache(s) Psych: Denies: depression Raymond/Lymph: Denies: easy bruising All/Imm: Denies: urticaria PFSH ED PFSH: Medical History (Updated 01/08/22 @ 22:14 by Jackie Burch MD) Hypertension Social History Smoking and tobacco status: current every day smoker (chew) Alcohol intake: never Physical Exam Const: COMMON NORMALS: no acute distress, patient oriented x3 and healthy appearing HENMT: COMMON NORMALS: normocephalic and atraumatic HEAD & SCALP: normocephalic and atraumatic Eye: COMMON NORMALS: Equal, round and reactive pupils present and EOMs intact bilaterally PUPIL: Yes Equal, round and reactive pupils present Neck/C-Spine: COMMON NORMALS: full ROM and supple Chest: COMMONS NORMALS: normal inspection of the chest and normal palpation of entire chest wall Resp: COMMON NORMALS: normal respiratory effort, No retractions, No use of accessory muscles and clear to auscultation bilaterally AUSCULTATION: clear to auscultation bilaterally Cardio: COMMON NORMALS: regular rate, regular rhythm and No murmurs present (Cardio) RATE: regular rate RHYTHM: regular rhythm GI: COMMON NORMALS: Normal to inspection, nondistended, normoactive bowel sounds present, Soft to palpation and no masses PALPATION: Yes Soft to palpation and Yes Tenderness to palpation present (GI) Details: LLQ Extremity: COMMON NORMALS: normal to inspection and full ROM Neuro: COMMON NORMALS: patient oriented x3, moves all extremities and no focal motor deficits Psych: COMMON NORMALS: mental status grossly normal, Normal thought process present and cooperative THOUGHT PROCESS: Normal thought process present Skin: COMMON NORMALS: no rashes or lesions noted and no wounds GENERAL SKIN EXAM: no rashes or lesions noted Course Vital Signs: Vital signs: Vital Signs Temperature 98.0 F 01/08/22 20:11 Pulse Rate 83 01/08/22 21:08 Respiratory Rate 18 01/08/22 20:55 Blood Pressure 119/70 01/08/22 21:08 Pulse Oximetry 95 01/08/22 21:08 MDM - Abdominal Pain Medical Decision Making Patient presents here with abdominal pain found to have diverticulitis his pain here is improved he has no signs of perforation or abscess he stable for discharge we will start him on antibiotics will prescribe hydrocodone he is to follow-up PCP and return if worsening he understands agrees to plan. Lab Data : 01/08/22 20:44 01/08/22 20:44 Labs/Radiology: Radiology Impressions Abdomen/Pelvis CT 01/08/22 20:31 IMPRESSION: 1. Mid descending colon diverticulitis, negative for abscess. 2. Bilateral punctate non-obstructing calyceal stones. Laboratory Results WBC 9.2 10^3/uL (4.0-10.0) 01/08/22 20:44 RBC 4.55 10^6/uL (4.1-5.3) 01/08/22 20:44 Hgb 13.7 g/dL (11.7-16.6) 01/08/22 20:44 Hct 41.5 % (42.0-52.0) L 01/08/22 20:44 MCV 91.2 fl (80-94) 01/08/22 20:44 MCH 30.1 pg (28.0-34.0) 01/08/22 20:44 MCHC 33.0 g/dL (30.0-36.0) 01/08/22 20:44 RDW 13.3 % (12.1-15.1) 01/08/22 20:44 Plt Count 318 10^3/cmm (130-400) 01/08/22 20:44 MPV 9.5 fL (7.4-10.4) 01/08/22 20:44 Neut % (Auto) 68.9 % 01/08/22 20:44 Lymph % (Auto) 17.5 % 01/08/22 20:44 [place] % (Auto) 10.7 % 01/08/22 20:44 Eos % (Auto) 1.8 % 01/08/22 20:44 Baso % (Auto) 0.7 % 01/08/22 20:44 Neut # (Auto) 6.34 10^3/uL (1.8-7.7) 01/08/22 20:44 Lymph # (Auto) 1.6 10^3/uL (0.8-4.8) 01/08/22 20:44 [place] # (Auto) 1.0 10^3/uL (0.2-0.9) H 01/08/22 20:44 Eos # (Auto) 0.2 10^3/uL (0.0-0.8) 01/08/22 20:44 Baso # (Auto) 0.1 10^3/uL (0.0-0.1) 01/08/22 20: Nucleated RBC % (auto) 0 % 01/08/22: Nucleated RBCs # 0.0 /100WBC 01/08/22 20:44 Sodium 134 mmol/L (136-145) L 01/08/22 20:44 Potassium 4.3 mmol/L (3.5-5.1) 01/08/22 20:44 Chloride 99 mmol/L (98-107) 01/08/22 20:44 Carbon Dioxide 23 mmol/L (22-29) 01/08/22 20:44 Anion Gap 16.3 (5-19) 01/08/22 20:44 BUN 16 mg/dL (6-20) 01/08/22 20:44 Creatinine 0.9 mg/dL (0.7-1.2) 01/08/22 20:44 GFR Calculation 87.9 mL/min (90-130) L 01/08/22 20:44 Glucose 111 mg/dL (65-115) 01/08/22 20:44 Calculated Osmolality 280 mOsm/kg (285-295) L 01/08/22 20:44 Calcium 8.9 mg/dL (8.5-10.5) 01/08/22 20:44 Total Bilirubin 0.3 mg/dL (0.15-1.2) 01/08/22 20:44 AST 16 U/L (0-40) 01/08/22 20:44 ALT 30 U/L (0-41) 01/08/22 20:44 Alkaline Phosphatase 77 IU/L (40-130) 01/08/22 20:44 Total Protein 6.9 g/dL (6.6-8.7) 01/08/22 20:44 Albumin 4.6 g/dL (3.5-5.2) 01/08/22 20:44 Globulin 2.3 g/dL (1.3-4.6) 01/08/22 20:44 Lipase 27 U/L (13-60) 01/08/22 20:44 Urine Color Straw (Yellow) 01/08/22 21:15 Urine Appearance Clear (CLEAR) 01/08/22 21:15 Urine pH 6 (5-7) 01/08/22 21:15 Ur Specific [place] 1.010 (1.005-1.030) 01/08/22 21:15 Urine Protein Neg (Negative) 01/08/22 21:15 Urine Glucose (UA) Norm (Normal) 01/08/22 21:15 Urine Ketones Negative (Negative) 01/08/22 21:15 Urine Blood Neg (Negative) 01/08/22 21:15 Urine Nitrate Negative (Negative) 01/08/22 21:15 Urine Bilirubin Neg (Negative) 01/08/22 21:15 Urine Urobilinogen Norm mg/dL (Negative) 01/08/22 21:15 Ur Leukocyte Esterase Negative (Negative) 01/08/22 21:15 Discharge Plan Discharge Patient Disposition: Home Clinical Impression: Diverticulitis Condition: Stable Prescriptions: New hydrocodone-acetaminophen 5-325 mg tablet 1 tab PO Q6H PRN (Reason: pain) Qty: 14 0RF Cipro 500 mg tablet 500 mg PO BID Qty: 14 0RF ondansetron 4 mg tablet,disintegrating 4 mg PO Q6H PRN (Reason: nausea and vomiting) Qty: 14 0RF metronidazole 500 mg tablet 500 mg PO Q8H 7 Days Qty: 21 0RF No Action pantoprazole [Protonix] 20 mg tablet,delayed release (DR/EC) 20 mg PO DAILY 30 Days Qty: 30 0RF Aleve PM 220-25 mg Tablet 2 tab PO BEDTIME 0RF lisinopril 10 mg tablet 10 mg PO QAM 0RF Discharge Orders: Discharge ED (Routine); Ordered 01/08/22 Ordered By: Jackie Burch Referrals: Jno Suresh DO [Primary Care Provider] - 1-3 days Discharge Diet: Advance as tolerated Discharge Activity: Resume usual activity Patient Instructions: Diverticulitis (ED) Coding Level of Care Code ED Inpatient Services Director for [facility] Fwd Exam Comprehensive
[2022-01-08 20:49] LABS: Basophils # 0.1 10^3/uL (0.0-0.1); Basophils % 0.7 %; Eosinophils # 0.2 10^3/uL (0.0-0.8); Eosinophils % 1.8 %; Hematocrit 41.5 % (42.0-52.0); Hemoglobin 13.7 g/dL (11.7-16.6); Lymphocytes # 1.6 10^3/uL (0.8-4.8); Lymphocytes % 17.5 %; Mean Corpuscular Hemoglobin 30.1 pg (28.0-34.0); Mean Corpuscular Volume 91.2 fl (80-94); Mean Platelet Volume 9.5 fL (7.4-10.4); Monocytes % 10.7 %; Neutrophils # 6.34 10^3/uL (1.8-7.7); Neutrophils % 68.9 %; Nucleated Red Blood Cells % 0 %; Platelet Count 318 10^3/cmm (130-400); Red Blood Count 4.55 10^6/uL (4.1-5.3); Red Cell Distribution Width 13.3 % (12.1-15.1); White Blood Count 9.2 10^3/uL (4.0-10.0)
[2022-01-08 20:55] VITALS: RESP 18; O2SAT 95
[2022-01-08] MEDS: ondansetron 2 mg/ML SDV 2 mL 4 MG IVP (20:55)
[2022-01-08] MEDS: HYDROmorphone 1 mg/mL INJ 1 mL IVP (20:55)
[2022-01-08 21:08] VITALS: BP 119/70; PULSE 83; O2SAT 95
[2022-01-08 21:09] LABS: Alanine Aminotransferase 30 U/L (0-41); Albumin Level 4.6 g/dL (3.5-5.2); Alkaline Phosphatase 77 IU/L (40-130); Anion Gap 16.3 (5-19); Aspartate Amino Transferase 16 U/L (0-40); Blood Urea Nitrogen 16 mg/dL (6-20); Calcium 8.9 mg/dL (8.5-10.5); Carbon Dioxide 23 mmol/L (22-29); Chloride 99 mmol/L (98-107); Globulin 2.3 g/dL (1.3-4.6); Glomerular Filtration Rate 87.9 mL/min (90-130); Glucose 111 mg/dL (65-115); Lipase 27 U/L (13-60); Osmolality Calculated 280 mOsm/kg (285-295); Potassium 4.3 mmol/L (3.5-5.1); Sodium 134 mmol/L (136-145); Total Bilirubin 0.3 mg/dL (0.15-1.2); Total Protein 6.9 g/dL (6.6-8.7)
[2022-01-08 21:24] LABS: Add Urine Microscopic? NO; Charge for UA Resulting for Rev
[2022-01-08 21:29] LABS: Bilirubin Urine Neg (Negative); Blood Urine Neg (Negative); Glucose Urine UA Norm (Normal); Ketones Urine Negative (Negative); Leukocyte Esterase Urine Negative (Negative); Nitrate Urine Negative (Negative); Protein Urine Neg (Negative); Urine Appearance Clear (CLEAR); Urine Color Straw (Yellow); Urobilinogen Urine Norm (Negative); pH Urine 6 (5-7)
[2022-01-08] MEDS: ciprofloxacin 500 mg Tablet PO (22:23)
[2022-01-08] MEDS: metroNIDAZOLE 500 MG Tablet PO (22:23)
[2022-01-08] MEDS: HYDROcodone-acetaminophen 5-325 mg Tablet 1 TAB PO (22:23)
[2022-01-08 22:33] VITALS: BP 138/86; PULSE 81; RESP 18; O2SAT 95
== END 2022-01-08 22:32 | disposition home or self-care (01) ==
PROVIDERS: Emergency Medicine; Emergency Provider Emergency Medicine; PCP Family Medicine
DX: R10.32 Left lower quadrant pain (principal); K57.92 Diverticulitis of intestine, part unspecified, without perforation or abscess without bleeding; I10 Essential (primary) hypertension
CPT/HCPCS: 74176; 80053; 81003; 83690; 85025; 96374; 96375; 99284; J1170; J2405

== ENCOUNTER 2022-03-23 20:29 | Emergency (ER) | payer OTHER, SELFPAY ==
[2022-03-23 20:53] VITALS: BP 152/94; PULSE 85; RESP 16; TEMP 37.4; O2SAT 95; BMI 29.8
[2022-03-23 21:42] LABS: SARS Covid-2 Antigen Positive (Negative)
--- NOTE | 2022-03-23 21:52 | XRR_ITS ---
PROCEDURE INFORMATION: Exam: XR Chest Exam date and time: 03/23/2022 10:05 PM Age: 57 years old Clinical indication: Cough; Additional info: Covid TECHNIQUE: Imaging protocol: Radiologic exam of the chest. Views: 1 view. COMPARISON: CR XR chest 1V portable [id number] 12/02/2020 3:57 PM FINDINGS: Lungs: Interval slight decrease in the lung volumes and appearance of minimal stranding suggestive of atelectasis in the left lateral lung base. No obvious airspace disease. Very small calcified granuloma in the right upper lung still possible. Pleural spaces: Still no pneumothorax or apparent pleural fluid. Heart/Mediastinum: Still no cardiomegaly. Vasculature: Continued mild aortic elongation. Bones/joints: No suggestion of acute bony disease. XR/XR chest 1V portable [id number] IMPRESSION: Interval decrease in the lung volumes and appearance of probable minimal atelectasis in the left lung base. No obvious airspace disease. No significant change in the rest of the chest.
--- NOTE | 2022-03-23 21:53 | W.ED.COVID ---
HPI - COVID General: Chief Complaint: Fever Stated Complaint: Covid Symptoms Time Seen by Provider: 03/23/22 21:53 Source: patient Mode of arrival: ambulatory Limitations: no limitations Triage information: No fever, cough or shortness of breath. Exposure to COVID + person last 14 days History of Present Illness: Patient is a 57-year-old male who presents to ED today with a complaint of headache, body aches, chills, loss of taste. He states symptoms started approximately 2 to 3 days ago. He states his significant other has been ill with similar symptoms. He is not complaining of any chest pain, shortness of breath, difficulty breathing. He has not had a cough. PMH significant for HTN. He reports questionable diagnosis of COPD as he was a heavy smoker but quit 8 months ago. MD complaint: has COVID symptoms Prior covid testing: no COVID 19 common symptoms: positive chills, body aches, headache(s) and loss of sense of smell and/or taste; negative fever(s), non-productive cough, productive cough, dyspnea, throat pain, nasal congestion, nausea, vomiting or diarrhea COVID 19 other sytmptoms: negative chest pain Onset (ago): day(s) Treatment prior to arrival: none COVID Results: SARS-CoV-2 Antigen (Rapid) Positive (Negative) H 03/23/22 21:02 Review of Systems Const: Reports: chills and body aches; Denies: fever(s) Eyes: Denies: change in vision, blurry vision or photophobia ENMT: Reports: other (loss of taste); Denies: throat pain, odynophagia, ear or mastoid pain, nasal discharge, nasal congestion, post nasal drip or sinus pain Card: Denies: chest pain Resp: Denies: dyspnea, productive cough, non-productive cough, wheezing, hemoptysis or chest congestion GI: Denies: abdominal pain, nausea, vomiting or diarrhea Musc: Denies: neck pain, back pain, extremity pain or joint pain Skin/Breast: Denies: rash Neuro: Reports: headache(s); Denies: numbness in extremities, weakness in extremities or sensory changes PFS ED PFSH: Medical History Hypertension Social History (Reviewed 03/23/22 @ 23:06 by DEEPTHI Dent Smoking and tobacco status: current every day smoker (chew) Alcohol intake: never Physical Exam Const: COMMON NORMALS: no acute distress, patient oriented x3, no limitations and alert GENERAL APPEARANCE: cooperative ORIENTATION/CONSCIOUSNESS: Yes awake, Yes oriented to person, Yes oriented to place and Yes oriented to time HENMT: COMMON NORMALS: normocephalic and atraumatic HEAD & SCALP: normal to inspection, normocephalic and atraumatic Neck/C-Spine: COMMON NORMALS: full ROM, no lymphadenopathy and no meningeal signs Resp: COMMON NORMALS: normal respiratory effort and clear to auscultation bilaterally AUSCULTATION: clear to auscultation bilaterally Cardio: COMMON NORMALS: regular rate and regular rhythm RATE: regular rate RHYTHM: regular rhythm Extremity: COMMON NORMALS: normal to inspection GENERAL: Yes normal exam except as noted Neuro: MAVERICK COMA SCALE: document [facility] findings [place] coma scale eye opening: Spontaneous [place] coma scale verbal response: Orientated [place] coma scale motor response: Obey commands [place] coma scale total score: 15 COMMON NORMALS: patient oriented x3 SENSORIUM/ORIENTATION: Yes alert, Yes oriented to person, Yes oriented to place and Yes oriented to time MENINGEAL SIGNS: Yes no meningeal signs Skin: COMMON NORMALS: no rashes or lesions noted GENERAL SKIN EXAM: no rashes or lesions noted Course Vital Signs: Vital signs: Vital Signs Temperature 99.4 F 03/23/22 20:53 Pulse Rate 88 03/23/22 22:52 Respiratory Rate 18 03/23/22 22:52 Blood Pressure 144/94 03/23/22 22:52 Pulse Oximetry 96 03/23/22 22:52 Oxygen Delivery Me thod 03/23/22 20:53 MDM - COVID Medical Decision Making Patient appears in no acute distress. His vital signs are stable. He is satting normally on room air. Patient tested positive for COVID via rapid antigen today. CXR is fairly unremarkable. Patient would benefit from oral Paxlovid thus prescription for this was provided. Discussed quarantine precaution guidelines. Return to ED precautions given. Lab Data Radiology Impressions Chest X-Ray 03/23/22 21:52 IMPRESSION: Interval decrease in the lung volumes and appearance of probable minimal atelectasis in the left lung base. No obvious airspace disease. No significant change in the rest of the chest. Laboratory Results SARS-CoV-2 Ag (Rapid) Positive (Negative) H 03/23/22 21:02 SARS-CoV-2 Antigen (Rapid) Positive (Negative) H 03/23/22 21:02 Discharge Plan Discharge Patient Disposition: Home Clinical Impression: COVID-19 Condition: Stable Prescriptions: New Paxlovid (EUA) 150 mg x 2- 100 mg tablet See Rx Instructions .ROUTE .COMPLEX Qty: 30 0RF Rx Instructions: take TWO 150 mg tablets of nirmatrelvir with ONE 100 mg tablet of ritonavir twice daily for 5 days No Action pantoprazole [Protonix] 20 mg tablet,delayed release (DR/EC) 20 mg PO DAILY 30 Days Qty: 30 0RF ciprofloxacin HCl 500 mg tablet 500 mg PO Q12H 14 Days Qty: 28 0RF metronidazole 500 mg tablet 500 mg PO BID Qty: 28 0RF Aleve PM 220-25 mg Tablet 2 tab PO BEDTIME lisinopril 10 mg tablet 10 mg PO QAM ondansetron 4 mg tablet,disintegrating 4 mg PO Q6H PRN (Reason: nausea and vomiting) Qty: 14 0RF Discharge Orders: Discharge ED (Routine); Ordered 03/23/22 Ordered By: Rafaela Cazares Referrals: Jon Suresh DO [Primary Care Provider] - Patient Instructions: COVID-19 (Coronavirus Disease 2019) (ED) Stand Alone Forms: Work/School Release Coding Level of Care Code ED B[employer]back Rider for Wan Velazquez
[2022-03-23 22:52] VITALS: BP 144/94; PULSE 88; RESP 18; O2SAT 96
== END 2022-03-23 22:53 | disposition home or self-care (01) ==
PROVIDERS: Emergency Medicine; Emergency Provider Physician Assistant; PCP Family Medicine
DX: U07.1 COVID-19 (principal); I10 Essential (primary) hypertension; F17.220 Nicotine dependence, chewing tobacco, uncomplicated
CPT/HCPCS: 71045; 87426; 99283